=== PATIENT | male | born 1930 | race Caucasian/White ===

== ENCOUNTER 2019-05-02 09:13 | Outpatient (CLI) | payer MEDICARE, OTHER ==
--- NOTE | 2019-05-03 16:51 | ULT ---
LOWER EXTREMITY ARTERIAL EVALUATION USING DOPPLER WAVEFORM ANALYSIS AND PRESSURE MEASUREMENTS: 05/02/19 Examination of the right leg reveals abnormal waveform at the femoral level with relatively preserved popliteal and dorsalis pedis waveforms. Ankle-arm index us 1.1 with a normal toe-branchial index. On the left leg, here is mildly decreased femoral waveform with relatively well preserved popliteal a nd dorsalis pedis waveforms and an ankle-arm index of 1.04 and a toe-brachial index 1.07. ASSESSMENT: This is a relatively normal resting arterial study of the lower extremities. It would not be consiste nt with any resting vascular ischemic symptoms. Could be consistent with mild vascular claudication.
== END 2019-05-02 09:14 | disposition home or self-care (01) ==
LOC: ULT 09:13
PROVIDERS: ATTEND Family Medicine
DX: I73.9 Peripheral vascular disease, unspecified (principal)
CPT/HCPCS: 93922

== ENCOUNTER 2019-07-31 15:32 | Emergency (ER) | payer MEDICARE, OTHER ==
[~2019-07-31 15:32] MED LIST: Iopamidol-370 76% 500 ML 1 ML ONE
--- NOTE | 2019-07-31 15:57 | CT ---
BRAIN CT WITHOUT IV CONTRAST: 07/31/19 HISTORY: Slurred speech, left sided weakness. Level I stroke. FINDINGS: Scattered areas of chronic white matter ischemic changes noted bilaterally. Multiple small foci of ab normal low attenuation change within the right and left cerebellum as well as the right and left occi pital lobes and blanca evidence for small bilateral multifocal small vessel infarct changes as well as bilateral chronic white matter ischemic changes. No focal mass or midline shift. No intra or extra-ax ial hemorrhage. No evidence for acute mass. IMPRESSION: 1. Evidence for bilateral chronic white matter ischemic changes. 2. Multiple small vessel scattered areas of infarction including the right and left cerebellum a nd right and left occipital lobes and blanca. Findings were discussed with Dr. Simeon by phone at 3:50 p.m. Code CR POS: RRE
[2019-07-31 16:00] LABS: Hemoglobin 9.6 g/dL (14.0-18.0); Mean Corpuscular HGB CONC 34.4 g/dL (32.0-36.0); Mean Corpuscular Hemoglobin 32.8 pg (27.0-31.0); Mean Corpuscular Volume 95.5 fL (78.0-98.0); Mean Platelet Volume 6.8 fL (7.4-10.4); Platelet Count 187 thou/uL (130-400); RBC Distribution Width 12.7 % (11.5-14.5); Red Blood Cell (RBC) Count 2.94 mill/uL (4.70-6.10); White Blood Cell (WBC) Count 8.6 thou/uL (4.8-10.8)
[2019-07-31 16:06] LABS: PTT 30.1 SEC (22.9-36.1); Prothrombin Time 15.2 SEC (12.0-14.7)
[2019-07-31 16:08] LABS: INR-International Normal Ratio 1.2
[2019-07-31 16:18] LABS: Band 4 % (5-11); Eosinophils 4 % (0-10); Lymphocytes 51 % (21-51); MDiff Complete? YES; Monocytes 1 % (0-10); Neutrophil 37 % (42-75); Platelet Morphology Comment Appears Adequate; Polychromasia SLIGHT = 2-3 cells (100X) (0-2/hpf); Reactive Lymphocytes 3 % (0-10)
[2019-07-31 16:22] LABS: ALT (SGPT) 19 U/L (8-55); AST (SGOT) 14 U/L (5-34); Alkaline Phosphatase 46 U/L (40-110); Anion Gap 11 mmol/L (10-20); BUN (Urea Nitrogen) 20 mg/dL (8.4-25.7); Bilirubin, Total 0.5 mg/dL (0.2-1.2); Calc. Creatinine Clearance 0 mL/min (70-130); Calcium 7.8 mg/dL (7.8-10.44); Carbon Dioxide 24 mmol/L (23-31); Chloride 105 mmol/L (98-107); Estimated GFR-MDRD 54; Globulin 1.7 g/dL (2.4-3.5); Glucose 152 mg/dL (83-110); Potassium 3.8 mmol/L (3.5-5.1); Protein, Total 4.7 g/dL (5.8-8.1); Sodium 136 mmol/L (136-145)
--- NOTE | 2019-08-01 14:53 | EKG ---
Test Reason : Blood Pressure : / mmHG Vent. Rate : 057 BPM Atrial Rate : 057 BPM P-R Int : 180 ms QRS Dur : 094 ms QT Int : 412 ms P-R-T Axes : 049 -18 099 degrees QTc Int : 401 ms Sinus bradycardia Nonspecific T wave abnormality Abnormal ECG Confirmed by KATHI BUSBY, ARLET Calvert ([id number]), offline editor HIMANSHU KOROMA ([id number]) on 08/01/2019 2:53:02 PM Referred By: Confirmed By:ARLET ARMENTA MD
--- NOTE | 2019-08-06 10:50 | CT ---
EXAM: CT ANGIOGRAM OF THE HEAD AND NECK INDICATION: Stroke COMPARISON: None TECHNIQUE: CT angiogram of the head and neck are performed in the axial plane. Three-dimensional refo rmatted images are submitted for interpretation. FINDINGS: CTA OF THE HEAD WITH AND WITHOUT CONTRAST: POSTCONTRAST CT OF BRAIN: Pathologic enhancement: No pathologic enhancement the brain. Postcontrast soft tissue neck CT: Sinuses: Adequate aeration of the sinuses and mastoid air cells. Orbits: Bilateral ocular lenses implants are appropriately located. Both globes are intact. Retrobulb ar fat is preserved. Symmetric attenuation the optic nerves and ocular rectus muscles. Salivary glands:Symmetric attenuation of the parotid and submandibular glands. Fatty replacement of b ilateral carotid glands noted Thyroid gland: Heterogeneously appearing right thyroid lobe with subcentimeter hypodensity. Thyroid i sthmus and left thyroid lobe are not appreciated. Correlate Lymph nodes: Nonspecific round lymph node, just deep to the right parotid gland measuring 1.1 x 0.8 c m. Paraspinal muscles: Symmetric attenuation of the sternocleidomastoid muscles. Appropriate attenuation of the paraspinal muscles. Cervical spine:Vertebral body height is maintained. No fracture. No significant central canal stenosi s or significant neural foraminal narrowing. Limited evaluation by technique. Upper mediastinum and lung apices: Chronic lung parenchymal changes. No acute abnormality. CTA OF THE NECK WITH CONTRAST: Aorta: Appropriate enhancement and luminal diameter. Atherosclerosis. Right carotid artery: Appropriate enhancement and luminal diameter of the right carotid artery origin . The innominate artery, common carotid artery, carotid bifurcation and internal carotid artery have appropriate enhancement and luminal diameter. No significant stenosis based upon NASCET criteria . Left carotid: Left carotid artery origin has appropriate enhancement and luminal diameter. Left commo n carotid artery, carotid bifurcation and internal carotid artery have appropriate enhancement and luminal diameter. No significant stenosis based upon NASCET criteria. Subclavian arteries:Patent and symmetric. Vertebral arteries:Dominant right vertebral artery. Bilateral vertebral arteries are patent throughou t their course in the neck. There is short segment mild narrowing involving the proximal left vertebral artery. CTA OF THE BRAIN: Intracranial internal carotid arteries:Appropriate enhancement and luminal diameter. Atherosclerosis in both cavernous segments. Anterior circulation: Appropriate enhancement and luminal diameter of the A1 and M1 segments. Appropr iate enhancement and luminal diameter the proximal A2 segments and proximal MCA branches. Intracranial vertebral arteries and posterior circulation: The right vertebral artery is patent as it enters the central spinal canal. 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 Beyond this short segment high-grade stenosis, t here is recanalization of the right vertebral artery. The left vertebral artery appears to have a probable PICA termination and is markedly diminutive. Limited evaluation of both PICA artery origins. The proximal basilar artery demonstrates multifocal segment moderate to severe stenosis. The distal basilar artery has appropriate enhancement and luminal diameter. There is high-grade stenosis involving the proximal left P1 segment. The right P1 segment is unremarkable. IMPRESSION: 1. No significant stenosis based upon NASCET criteria with regards to the cervical carotid arteries. 2. Short segment narrowing involving the proximal left cervical vertebral artery. Right vertebral art curly is dominant. 3. No significant stenosis in the anterior circulation. 4. 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 5. Indeterminate right neck lymph node, incompletely evaluated. Further evaluation with PET imaging m ay be beneficial. Results of study discussed with Dr. Simeon on 07/31/2019 4:00 PM Code CR Transcribed Date/Time: 08/06/2019 10:50 AM
== END 2019-07-31 19:02 | disposition short-term general hospital (02) ==
LOC: ERS 15:32
DX: R55 Syncope and collapse (principal); E03.9 Hypothyroidism, unspecified; N18.9 Chronic kidney disease, unspecified; Z86.73 Personal history of transient ischemic attack (TIA), and cerebral infarction without residual deficits
CPT/HCPCS: 36415; 36416; 70450; 70496; 70498; 80053; 84484; 85025; 85610; 85730; 93005; 94760; Q9967